=== PATIENT | female | born 2000 | race African-American/Black ===

== ENCOUNTER 2019-05-25 13:51 | Outpatient (CLI) | payer OTHER ==
--- NOTE | 2019-05-25 14:55 | ULT ---
OB ULTRASOUND: HISTORY: anatomy and cervical length. FINDINGS: A single live intrauterine gestation is seen with measurements corresponding to an estimated gestatio nal age of 28 weeks 2 days and DEMIAN at 08/15/2019. The estimated weight measures 1187 g or 2 pounds and 10 ounces, 29% by Hadlock criteria. measurements are as follows: BPD: 7.00 cm, 28 weeks 1 day HC: 25.90 cm, 28 weeks 2 days AC: 23.57 cm, 28 weeks 0 days FL: 5.41 cm, 28 weeks 5 days heart rate measures 153 bpm. JOHNATHAN measures 8.1 cm. Placenta is anteriorly located without eviden ce of placenta previa. The cervical length measures 4.6 cm. A 3-vessel cord, cord insertion, kidneys, bladder, stomach, 4 chambered heart, lateral ventricl es, cerebellum, spine, lips/nose, upper and lower extremities are visualized. No definite abnormalities are seen. IMPRESSION: Single live intrauterine of 28 weeks 2 days estimated gestational age and estimated date of delivery at 08/15/2019. Transcribed Date/Time: 05/25/2019 3:06 PM
== END 2019-05-25 13:52 | disposition home or self-care (01) ==
LOC: BICULT 13:51
PROVIDERS: ATTEND Family Medicine
DX: O09.93 Supervision of high risk pregnancy, unspecified, third trimester (principal); Z3A.28 28 weeks gestation of pregnancy
CPT/HCPCS: 76805

== ENCOUNTER 2019-08-10 05:38 | Inpatient (IN) | payer OTHER ==
[2019-08-10] MEDS ORDERED: Bicitra 30 ML UDCUP PO SCH (06:02)
[2019-08-10] MEDS ORDERED: CEFAZOLIN 3 GM in Premix Bag 1 BAG IVPB SCH (06:02)
[2019-08-10] MEDS ORDERED: hydrALAZINE 20 MG/ML VIAL SLOW IVP PRN ×2 (06:02→09:11)
[2019-08-10] MEDS ORDERED: Promethazine HCl 25 MG/ML VIAL IM PRN ×3 (06:02→09:11)
[2019-08-10] MEDS ORDERED: Ondansetron PF 4 MG/2 ML Vial IVP PRN ×3 (06:02→09:11)
[2019-08-10] MEDS ORDERED: CEFAZOLIN 3 GM in Sodium Chloride 0.9% 100 ML IVPB SCH (06:15)
[2019-08-10 06:17] VITALS: BMI 47.2
[2019-08-10 06:40] LABS: Hemoglobin 9.9 g/dL (12.0-16.0); Mean Corpuscular HGB CONC 27.8 g/dL (32.0-36.0); Mean Corpuscular Hemoglobin 18.3 pg (25.0-35.0); Mean Corpuscular Volume 65.8 fL (78.0-98.0); RBC Distribution Width 16.6 % (11.5-14.5); Red Blood Cell (RBC) Count 5.42 mill/uL (4.00-5.20)
[2019-08-10 06:56] LABS: Mean Platelet Volume 11.9 fL (7.4-10.4); Platelet Count 322 thou/uL (130-400); White Blood Cell (WBC) Count 9.2 thou/uL (4.8-10.8)
[2019-08-10 07:07] LABS: HBSAg Index 0.21 S/CO (0-0.99); Hep B Surf Ag Non-Reactive S/CO (NonReactive); Syphilis Antibody Nonreactive (Nonreactive); Syphilis Antibody Index 0.08 S/CO (<1.00 Non-Reactive)
[2019-08-10] MEDS: Lactated Ringer's 1,000 ML IV SCH ×2 (07:30→21:20)
[2019-08-10] MEDS ORDERED: diphenhydrAMINE 50 MG/ML VIAL IVP PRN (07:36)
[2019-08-10] MEDS ORDERED: Ondansetron HCl/PF 4 MG/2 ML Vial IVP PRN (07:36)
[2019-08-10] MEDS ORDERED: Promethazine HCl 25 MG SUPP PR PRN (07:36)
[2019-08-10] MEDS ORDERED: Ketorolac Tromethamine 30 MG/ML VIAL IVP PRN (07:36)
[2019-08-10] MEDS ORDERED: Naloxone HCl 0.4 mg/ml Vial IVP PRN ×2 (07:36)
[2019-08-10] MEDS ORDERED: Naloxone HCl 0.4 mg/ml Vial IV PRN (07:36)
[2019-08-10] MEDS ORDERED: HYDROmorphone 2 MG/ML VIAL SLOW IVP PRN (07:36)
[2019-08-10] MEDS ORDERED: Meperidine HCl/PF 25 MG/ML VIAL SLOW IVP PRN (07:36)
[2019-08-10] MEDS ORDERED: L&D-Morphine 4 MG/ML VIAL SLOW IVP PRN (07:36)
[2019-08-10] MEDS ORDERED: MORPHINE 5 MG/10 ML PF VIAL ONE (07:37)
[2019-08-10] MEDS ORDERED: Oxytocin 10 UNITS/ML VIAL ONE ×2 (07:37→08:10)
[2019-08-10] MEDS ORDERED: PHENYLEPHRINE-NS 100 MCG/ML 10 ML SYRINGE ONE (07:38)
[2019-08-10] MEDS ORDERED: Ondansetron PF 4 MG/2 ML Vial ONE (07:38)
[2019-08-10] MEDS ORDERED: EPHEDRINE 25 MG/5 ML SYRINGE ONE (07:38)
[2019-08-10] MEDS ORDERED: Communication Order-Pharmacy FS SCH (07:45)
[2019-08-10] MEDS ORDERED: Ketorolac Tromethamine 30 MG/ML VIAL IVP SCH (07:45)
[2019-08-10] MEDS ORDERED: Bisacodyl 10 MG SUPP PR PRN (09:11)
[2019-08-10] MEDS ORDERED: NS / Oxytocin 40 units/1000ml 1,000 ML IV SCH (09:11)
[2019-08-10] MEDS ORDERED: Adacel (T-DAP) 0.5 ML SYRINGE IM ONE (09:11)
[2019-08-10] MEDS ORDERED: HYDROcodone/Acetaminophen 5/325 mg Tablet PO PRN (09:11)
[2019-08-10] MEDS ORDERED: Lanolin Ointment 7 GM TUBE TOP PRN (09:11)
[2019-08-10] MEDS ORDERED: diphenhydrAMINE 25 MG CAP PO PRN (09:11)
[2019-08-10] MEDS ORDERED: Docusate Calcium (SURFAK) 240 MG CAP PO SCH (09:30)
[2019-08-10] MEDS ORDERED: Prenatal Vitamin 1 TAB PO SCH (09:30)
[2019-08-10] MEDS ORDERED: Ferrous Sulfate 325 MG TAB PO SCH (09:30)
[2019-08-10] MEDS: Ketorolac Tromethamine 30 MG/ML VIAL IVP SCH ×2 (15:19→21:21)
[2019-08-10] MEDS: Ferrous Sulfate 325 MG TAB PO SCH (17:26)
[2019-08-10] MEDS ORDERED: Meperidine HCl/PF 25 MG/ML VIAL IM PRN (19:45)
[2019-08-10] MEDS: Docusate Calcium (SURFAK) 240 MG CAP PO SCH (21:20)
[2019-08-11] MEDS: Ibuprofen 800 MG TAB PO SCH ×3 (05:09→21:39)
[2019-08-11] MEDS: Ketorolac Tromethamine 30 MG/ML VIAL IVP SCH (05:10)
[2019-08-11 05:53] LABS: Hemoglobin 8.2 g/dL (12.0-16.0); Mean Corpuscular HGB CONC 32.9 g/dL (32.0-36.0); Mean Corpuscular Hemoglobin 21.7 pg (25.0-35.0); Mean Corpuscular Volume 65.9 fL (78.0-98.0); Mean Platelet Volume 11.1 fL (7.4-10.4); Platelet Count 227 thou/uL (130-400); RBC Distribution Width 16.1 % (11.5-14.5); Red Blood Cell (RBC) Count 3.78 mill/uL (4.00-5.20); White Blood Cell (WBC) Count 9.2 thou/uL (4.8-10.8)
[2019-08-11] MEDS: Docusate Calcium (SURFAK) 240 MG CAP PO SCH ×2 (08:18→21:39)
[2019-08-11] MEDS: HYDROcodone/Acetaminophen 5/325 mg Tablet PO PRN ×4 (08:18→21:39)
[2019-08-11] MEDS: Ferrous Sulfate 325 MG TAB PO SCH ×2 (08:18→16:43)
[2019-08-11] MEDS: Prenatal Vitamin 1 TAB PO SCH (08:19)
--- NOTE | 2019-08-11 08:46 | DN ---
DATE OF PROCEDURE: 08/10/2019 SURGEON: James Miles MD CONGRESSIONAL AIDE: Onel Tellez, PGY-3 PROCEDURE: Primary low transverse section. PREOPERATIVE DIAGNOSES: 1. Term intrauterine . 2. History of shoulder dystocia on previous delivery. POSTOPERATIVE DIAGNOSES: 1. Term intrauterine . 2. History of shoulder dystocia on previous delivery. ANESTHESIA: Spinal. INDICATIONS: The patient is a 18-year-old G2, P1-0-0-1 at 39 and 3 weeks, who presents for scheduled primary due to last baby being in shoulder dystocia and difficult delivery and small pelvis. DESCRIPTION OF PROCEDURE: After risks, benefits, and alternatives were explained to the patient, she gave informed consent. Preoperative antibiotics included cefazolin 2 g IV. She was taken to the operating room and spinal anesthesia was initiated. She was placed in the supine position with a left tilt and prepped and draped in the usual sterile fashion. Pfannenstiel incision was made with a scalpel and carried down to the level of fascia, which was sharply nicked. Fascial cut was extended bilaterally with Mattson scissors. Inferior and superior edges of the fascial cut edges were elevated with Radha clamps and the underlying rectus muscles were sharply and bluntly dissected free. Recti were divided digitally and retracted manually. The peritoneum was entered bluntly and retracted manually. Bladder blade was placed. A low transverse score was made with a scalpel and the uterus was entered in the midline with the scalpel. Some light meconium fluid was seen. Hysterotomy was extended manually. Infant was noted to be vertex and easily delivered by fundal pressure. Mouth and nares were bulb suctioned. Cord clamped and cut and grossly normal female was handed to awaiting nurse. Cord blood was obtained. Placenta was manually extracted, found to be intact with three vessel cord and discarded. Uterus was externalized and the endometrium was curetted with a dry lap. The uterus was then closed with a running locking 0 Vicryl suture, followed by a few [id number] 0 Vicryl sutures. Following this, hemostasis was noted. Abdomen was irrigated with saline, suctioned free of clots. Uterus was internalized and hysterotomy was again noted to be hemostatic. The peritoneum was then closed with 3-0 Vicryl. The fascia was then closed with a running nonlocking 0 PDS suture. Subcu tissues were irrigated and there were no bleeders. Subcu layer was then brought together with three interrupted 3-0 Vicryl suture. The skin was approximated with rajesh and a wound VAC pressure dressing was placed. All counts were correct. The patient tolerated the procedure well and was taken to the recovery room in stable condition. QBL: 852. COMPLICATIONS: None. SPECIMEN: Cord blood sent to lab for blood type. FINDINGS: Grossly normal female with Apgars of 8 and 9. Grossly normal placenta with 3-vessel cord, discarded. DRAINS: Garcia to gravity, draining clear urine. Job ID: [id number]
[2019-08-11] MEDS: Simethicone Chewable 80 MG TAB PO PRN ×2 (12:00→16:43)
[2019-08-12] MEDS: Simethicone Chewable 80 MG TAB PO PRN ×2 (00:04→12:24)
[2019-08-12] MEDS: HYDROcodone/Acetaminophen 5/325 mg Tablet PO PRN ×5 (02:00→20:12)
[2019-08-12] MEDS: Ibuprofen 800 MG TAB PO SCH ×3 (06:13→21:36)
[2019-08-12] MEDS: Ferrous Sulfate 325 MG TAB PO SCH ×2 (08:19→16:47)
[2019-08-12] MEDS: Prenatal Vitamin 1 TAB PO SCH (08:20)
[2019-08-12] MEDS: Docusate Calcium (SURFAK) 240 MG CAP PO SCH ×2 (08:20→20:12)
[2019-08-12] MEDS ORDERED: Fluconazole 100 MG TAB PO SCH (17:00)
[2019-08-13] MEDS: Ibuprofen 800 MG TAB PO SCH ×2 (05:17→13:50)
[2019-08-13] MEDS: HYDROcodone/Acetaminophen 5/325 mg Tablet PO PRN ×2 (05:18→12:43)
[2019-08-13 08:57] VITALS: BP 118/64; TEMP 98.7
[2019-08-13] MEDS: Prenatal Vitamin 1 TAB PO SCH (09:50)
[2019-08-13] MEDS: Ferrous Sulfate 325 MG TAB PO SCH (09:50)
[2019-08-13] MEDS: Docusate Calcium (SURFAK) 240 MG CAP PO SCH (09:50)
== END 2019-08-13 16:30 | disposition home or self-care (01) | DRG 788 ==
LOC: L&D 05:38 → 3SW 11:34
PROVIDERS: ADMIT Family Medicine; ATTEND Family Medicine
PROC: 10D00Z1 Extraction of Products of Conception, Low, Open Approach (ICD-10-PCS; principal; 2019-08-10)
DX: O66.0 Obstructed labor due to shoulder dystocia (principal); Z3A.39 39 weeks gestation of pregnancy; Z37.0 Single live birth
CPT/HCPCS: 36415; 51702; 85027; 86780; 86850; 86900; 86901; 87340; J1170; J1885; J2274; J2405; J2590

== ENCOUNTER 2020-07-16 13:38 | Outpatient (CLI) | payer MEDICAID, OTHER | END 2020-07-16 13:39 | disposition home or self-care (01) | LOC: BICULT 13:38 | PROVIDERS: ATTEND Family Medicine | DX: O09.892 Supervision of other high risk pregnancies, second trimester (principal); Z3A.25 25 weeks gestation of pregnancy | CPT/HCPCS: 76805 ==

== ENCOUNTER 2020-08-05 22:02 | Emergency (ER) | payer OTHER ==
[2020-08-05 23:13] LABS: ALT (SGPT) 7 U/L (8-55); AST (SGOT) 14 U/L (5-34); Albumin 3.4 g/dL (3.5-5.0); Alkaline Phosphatase 86 U/L (40-110); Anion Gap 13 mmol/L (10-20); BUN (Urea Nitrogen) 6 mg/dL (7.0-18.7); Bilirubin, Total Less than 0.2 mg/dL (0.2-1.2); Calc. Creatinine Clearance 0 mL/min (70-130); Calcium 8.2 mg/dL (7.8-10.44); Carbon Dioxide 21 mmol/L (22-29); Chloride 107 mmol/L (98-107); Globulin 3.6 g/dL (2.4-3.5); Glucose 88 mg/dL (70-105); Potassium 3.5 mmol/L (3.5-5.1); Sodium 137 mmol/L (136-145)
[2020-08-05 23:19] LABS: Hemoglobin 9.6 g/dL (12.0-16.0); Mean Corpuscular HGB CONC 31.6 g/dL (32.0-36.0); Mean Corpuscular Hemoglobin 21.3 pg (27.0-31.0); Mean Corpuscular Volume 67.4 fL (78.0-98.0); Mean Platelet Volume 11.6 fL (7.4-10.4); Platelet Count 258 thou/uL (130-400); RBC Distribution Width 18.1 % (11.5-14.5); Red Blood Cell (RBC) Count 4.49 mill/uL (4.20-5.40); White Blood Cell (WBC) Count 6.8 thou/uL (4.8-10.8)
[2020-08-05 23:41] LABS: #Lymphocytes 1.8 thou/uL (1.20-3.40); #Monocytes 0.6 thou/uL (0.11-0.59); #Neutrophils 4.4 thou/uL (1.40-6.50); %Basophils 0.2 % (0.0-1.0); %Eosinophils 0.7 % (0.0-10.0); %Lymphocytes 25.5 % (21.0-51.0); %Neutrophils 64.6 % (42.0-75.0); Anisocytosis SLIGHT = 6-15 cells (100X) (0-5/hpf); MDiff Complete? YES
== END 2020-08-06 01:31 | disposition home or self-care (01) ==
LOC: ERS 22:02
DX: J02.9 Acute pharyngitis, unspecified (principal)
CPT/HCPCS: 36415; 80053; 84702; 85025; 93005

== ENCOUNTER 2024-12-21 10:43 | Inpatient (IN) | payer MEDICAID, OTHER ==
[2024-12-21] MEDS ORDERED: Ondansetron PF 4 MG/2 ML Vial ONE (11:11)
[2024-12-21 11:49] LABS: #Basophils 0.08 10x3/uL (0.0-0.2); #Eosinophils 0.21 10x3/uL (0.0-0.7); #Monocytes 0.62 10x3/uL (0.11-0.59); #Neutrophils 5.19 10x3/uL (1.40-6.50); %Basophils 1.0 % (0.0-1.0); %Eosinophils 2.6 % (0.0-10.0); %Lymphocytes 24.3 % (21.0-51.0); %Monocytes 7.7 % (0.0-10.0); %Neutrophils 64.0 % (42.0-75.0); Hematocrit 45.2 % (36.0-47.0); Hemoglobin 14.1 g/dL (12.0-16.0); Mean Corpuscular Hemoglobin 24.5 pg (27.0-31.0); Mean Corpuscular Volume 78.5 fL (78.0-98.0); Platelet Count 300 10x3/uL (130-400); Red Blood Cell (RBC) Count 5.76 mill/uL (4.20-5.40); White Blood Cell (WBC) Count 8.10 10x3/uL (4.8-10.8)
[2024-12-21 11:51] LABS: BHCG - Serum Negative (NEGATIVE); Pregs Control Background? CLEAR/WHITE (CLR/WHITE); Pregs Control Bar Appear? YES (CONTROL BAR)
[2024-12-21 12:32] LABS: ALT (SGPT) 11 U/L (Less than 34); AST (SGOT) 21 U/L (11-34); Albumin 3.9 g/dL (3.1-4.5); Alkaline Phosphatase 184 U/L (40-110); Anion Gap 25 mmol/L (10-20); BUN (Urea Nitrogen) 6 mg/dL (7.0-18.7); Bilirubin, Total 0.3 mg/dL (0.3-1.2); Calc. Creatinine Clearance 0 mL/min (70-130); Calcium 8.4 mg/dL (7.8-10.44); Carbon Dioxide Less than 8 mmol/L (22-29); Chloride 110 mmol/L (98-107); Globulin 4.2 g/dL (2.4-3.5); Glucose 529 mg/dL (70-105); Lipase 8 U/L (8-78); Potassium 4.4 mmol/L (3.5-5.1); Sodium 137 mmol/L (136-145)
[2024-12-21 13:14] LABS: Bacteria/HPF None Seen HPF (None Seen); CAUTI Indications for Culture Dysuria,urgency,freq; Glucose, Urine (Dipstick) Greater than 1000 mg/dL (Negative); Leukocyte Negative Leu/uL (Negative); Protein, Urine (Dipstick) 20 mg/dL (Neg-Trace); Specific Gravity, Urine 1.030 (1.002-1.036); WBC/HPF 0-3 HPF (0-3); Yeast-Budding 1+ HPF (None Seen); Yeast-Hyphae Rare HPF (None Seen)
[2024-12-21 13:15] LABS: Urine Culture Reflex No No
[2024-12-21 13:15] LABS: Base Excess -21.2 mEq/L (-2.0 to +3.0); Calcium, Ionized (venous) 1.10 mmol/L (1.16-1.32); Chloride (VBG) 112 mmol/L (98-106); Hematocrit-VBG 43 % (36.0-47.0); Hemoglobin (Hb) 14.7 g/dL (11.7-15.5); Potassium (VBG) 3.67 mmol/L (3.70-5.30); Sodium 142 mmol/L (133-146)
[2024-12-21 13:16] LABS: Actual Bicarbonate (HCO3v) 7.8 mEq/L (22-28)
[2024-12-21 13:40] LABS: Osmolality, Serum 318 mOsm/kg (275-295)
[2024-12-21] MEDS ORDERED: NS 0.9% w/ 20 MEQ KCL 1,000 ML ONE ×2 (13:42→16:05)
[2024-12-21] MEDS ORDERED: INSULIN REGULAR IN 0.9 % NACL 100 ML ONE (13:42)
[2024-12-21] MEDS ORDERED: Sodium Bicarb 50 MEQ/50 ML Abboject 8.4% SYRINGE ONE (14:55)
[2024-12-21] MEDS ORDERED: Senokot S 8.6-50 MG TAB PO PRN (15:59)
[2024-12-21] MEDS: NS 0.9% w/ 20 MEQ KCL 1,000 ML IV PRN (16:00)
[2024-12-21] MEDS ORDERED: Electrolyte Replacement Protocol 1 EACH FS SCH (16:00)
[2024-12-21] MEDS ORDERED: Dextrose 50% Abboject 50 ML SYRINGE SLOW IVP PRN (16:01)
[2024-12-21] MEDS ORDERED: NS 0.9% w/ 20 MEQ KCL 1,000 ML IV PRN (16:01)
[2024-12-21] MEDS ORDERED: INSULIN REGULAR IN 0.9 % NACL 100 ML IVPB SCH (16:15)
[2024-12-21 17:15] LABS: Anion Gap 18 mmol/L (10-20); BUN (Urea Nitrogen) 4 mg/dL (7.0-18.7); Calc. Creatinine Clearance 0 mL/min (70-130); Calcium 7.8 mg/dL (7.8-10.44); Carbon Dioxide 11 mmol/L (22-29); Chloride 118 mmol/L (98-107); Glucose 224 mg/dL (70-105); Potassium 3.5 mmol/L (3.5-5.1); Sodium 143 mmol/L (136-145)
[2024-12-21] MEDS: Ferrous Sulfate 325 MG TAB PO SCH (20:05)
[2024-12-21] MEDS: Ondansetron PF 4 MG/2 ML Vial IVP PRN (20:10)
[2024-12-21 20:23] VITALS: BMI 51.2
[2024-12-21] MEDS: D5 1/2 NS w/20 mEq KCL 1,000 ML IV PRN (22:41)
[2024-12-21] MEDS: Potassium Chloride 20 MEQ in Premix 1 BAG IVPB SCH (22:41)
[2024-12-22 00:04] LABS: Anion Gap 16 mmol/L (10-20); BUN (Urea Nitrogen) Less than 4 mg/dL (7.0-18.7); Calc. Creatinine Clearance 219 mL/min (70-130); Calcium 7.7 mg/dL (7.8-10.44); Carbon Dioxide 14 mmol/L (22-29); Chloride 114 mmol/L (98-107); Glucose 264 mg/dL (70-105); Potassium 3.4 mmol/L (3.5-5.1); Sodium 141 mmol/L (136-145)
[2024-12-22] MEDS: Acetaminophen 325 MG TAB PO PRN (02:42)
[2024-12-22 04:27] LABS: #Basophils 0.08 10x3/uL (0.0-0.2); #Eosinophils 0.34 10x3/uL (0.0-0.7); #Monocytes 0.63 10x3/uL (0.11-0.59); #Neutrophils 3.80 10x3/uL (1.40-6.50); %Basophils 1.1 % (0.0-1.0); %Eosinophils 4.7 % (0.0-10.0); %Lymphocytes 32.9 % (21.0-51.0); %Monocytes 8.7 % (0.0-10.0); %Neutrophils 52.3 % (42.0-75.0); Hematocrit 36.6 % (36.0-47.0); Hemoglobin 11.7 g/dL (12.0-16.0); Mean Corpuscular Hemoglobin 25.0 pg (27.0-31.0); Mean Corpuscular Volume 78.2 fL (78.0-98.0); Platelet Count 241 10x3/uL (130-400); Red Blood Cell (RBC) Count 4.68 mill/uL (4.20-5.40); White Blood Cell (WBC) Count 7.26 10x3/uL (4.8-10.8)
[2024-12-22 05:18] LABS: ALT (SGPT) Less than 7 U/L (Less than 34); AST (SGOT) 13 U/L (11-34); Albumin 2.9 g/dL (3.1-4.5); Anion Gap 11 mmol/L (10-20); BUN (Urea Nitrogen) Less than 4 mg/dL (7.0-18.7); Bilirubin, Total 0.3 mg/dL (0.3-1.2); Calc. Creatinine Clearance 243 mL/min (70-130); Calcium 7.7 mg/dL (7.8-10.44); Carbon Dioxide 14 mmol/L (22-29); Cardiac Risk 6.4 (Less than 4.5); Chloride 113 mmol/L (98-107); Cholesterol 197 mg/dl (< 200 Desired); Globulin 3.2 g/dL (2.4-3.5); Glucose 225 mg/dL (70-105); HDL Cholesterol 31 mg/dL (>60 Neg Risk); LDL Cholesterol, Calculated 139 mg/dL; Magnesium 1.5 mg/dL (1.6-2.6); Potassium 3.5 mmol/L (3.5-5.1); Sodium 134 mmol/L (136-145); Triglycerides 134 mg/dL (Less than 150)
[2024-12-22 05:44] LABS: Alkaline Phosphatase 121 U/L (40-110)
[2024-12-22] MEDS: Magnesium 2 GM/50 ML(in water) 2 GM in Premix 1 BAG IVPB SCH (07:55)
[2024-12-22] MEDS: Potassium Phosphate 30 MMOL in Sodium Chloride 0.9% 250 ML 250 ML IVPB SCH (07:55)
[2024-12-22] MEDS: Enoxaparin 40 MG (0.4 mL) SYRINGE SC SCH (07:55)
[2024-12-22] MEDS: Calcium Carbonate 500 MG ChewTAB PO PRN (07:55)
[2024-12-22 08:32] LABS: Anion Gap 12 mmol/L (10-20); BUN (Urea Nitrogen) Less than 4 mg/dL (7.0-18.7); Calc. Creatinine Clearance 236 mL/min (70-130); Calcium 7.9 mg/dL (7.8-10.44); Carbon Dioxide 12 mmol/L (22-29); Chloride 113 mmol/L (98-107); Glucose 151 mg/dL (70-105); Potassium 3.5 mmol/L (3.5-5.1); Sodium 133 mmol/L (136-145)
[2024-12-22] MEDS ORDERED: Sodium Bicarbonate Tab 325 MG TAB PO SCH (12:00)
[2024-12-22] MEDS ORDERED: Dextrose 50% Abboject 50 ML SYRINGE SLOW IVP PRN (13:10)
[2024-12-22] MEDS ORDERED: Glucagon 1 MG/ML KIT IM PRN (13:10)
[2024-12-22] MEDS: Insulin Glargine 30 UNITS/0.3 ML VIAL SC SCH ×2 (14:25→20:44)
[2024-12-22] MEDS: Potassium Bicarbonate/Cit Ac 20 MEQ TAB PO SCH ×2 (14:28→23:38)
[2024-12-22 15:05] VITALS: BMI 51.2
[2024-12-22 16:14] LABS: Anion Gap 16 mmol/L (10-20); BUN (Urea Nitrogen) Less than 4 mg/dL (7.0-18.7); Calc. Creatinine Clearance 195 mL/min (70-130); Calcium 8.3 mg/dL (7.8-10.44); Carbon Dioxide 14 mmol/L (22-29); Chloride 105 mmol/L (98-107); Glucose 354 mg/dL (70-105); Potassium 3.8 mmol/L (3.5-5.1); Sodium 131 mmol/L (136-145)
[2024-12-22] MEDS: Electrolyte Replacement Protocol 1 EACH IVPB ONE (16:16)
[2024-12-22 20:26] LABS: Anion Gap 14 mmol/L (10-20); BUN (Urea Nitrogen) 4 mg/dL (7.0-18.7); Calc. Creatinine Clearance 198 mL/min (70-130); Calcium 8.1 mg/dL (7.8-10.44); Carbon Dioxide 14 mmol/L (22-29); Chloride 105 mmol/L (98-107); Glucose 487 mg/dL (70-105); Potassium 3.4 mmol/L (3.5-5.1); Sodium 130 mmol/L (136-145)
[2024-12-22] MEDS: Famotidine 20 MG TAB PO SCH (20:44)
[2024-12-23 06:38] LABS: Anion Gap 17 mmol/L (10-20); BUN (Urea Nitrogen) Less than 4 mg/dL (7.0-18.7); Calc. Creatinine Clearance 264 mL/min (70-130); Calcium 8.3 mg/dL (7.8-10.44); Carbon Dioxide 17 mmol/L (22-29); Chloride 106 mmol/L (98-107); Glucose 299 mg/dL (70-105); Magnesium 1.8 mg/dL (1.6-2.6); Potassium 3.1 mmol/L (3.5-5.1); Sodium 137 mmol/L (136-145)
[2024-12-23] MEDS ORDERED: Potassium Bicarbonate/Cit Ac 20 MEQ TAB PO SCH (07:45)
[2024-12-23] MEDS: Insulin Glargine 30 UNITS/0.3 ML VIAL SC SCH ×2 (08:18→20:41)
[2024-12-23] MEDS ORDERED: Insulin Glargine 30 UNITS/0.3 ML VIAL SC SCH (09:00)
[2024-12-23] MEDS: Magnesium 2 GM/50 ML(in water) 2 GM in Premix 1 BAG IVPB SCH (10:03)
[2024-12-23] MEDS ORDERED: Insulin Regular 300 UNITS/3 ML VIAL SC PRN (12:58)
[2024-12-23] MEDS: Sodium Bicarbonate Tab 325 MG TAB PO SCH (15:17)
[2024-12-23] MEDS: Senokot S 8.6-50 MG TAB PO SCH (20:52)
[2024-12-24] MEDS: ALPRAZolam 0.25 MG TAB PO SCH (00:38)
[2024-12-24 04:57] LABS: #Basophils Less than 0.03 10x3/uL (0.0-0.2); #Eosinophils 0.22 10x3/uL (0.0-0.7); #Monocytes 0.42 10x3/uL (0.11-0.59); #Neutrophils 1.73 10x3/uL (1.40-6.50); %Basophils 0.4 % (0.0-1.0); %Eosinophils 4.0 % (0.0-10.0); %Lymphocytes 56.5 % (21.0-51.0); %Monocytes 7.6 % (0.0-10.0); %Neutrophils 31.3 % (42.0-75.0); Hematocrit 36.0 % (36.0-47.0); Hemoglobin 11.8 g/dL (12.0-16.0); Mean Corpuscular Hemoglobin 24.9 pg (27.0-31.0); Mean Corpuscular Volume 75.9 fL (78.0-98.0); Platelet Count 224 10x3/uL (130-400); Red Blood Cell (RBC) Count 4.74 mill/uL (4.20-5.40); White Blood Cell (WBC) Count 5.52 10x3/uL (4.8-10.8)
[2024-12-24 05:10] LABS: Anion Gap 11 mmol/L (10-20); BUN (Urea Nitrogen) Less than 4 mg/dL (7.0-18.7); Calc. Creatinine Clearance 292 mL/min (70-130); Calcium 7.8 mg/dL (7.8-10.44); Carbon Dioxide 27 mmol/L (22-29); Chloride 107 mmol/L (98-107); Glucose 77 mg/dL (70-105); Magnesium 2.0 mg/dL (1.6-2.6); Potassium 2.8 mmol/L (3.5-5.1); Sodium 142 mmol/L (136-145)
[2024-12-24] MEDS: Magnesium 2 GM/50 ML(in water) 2 GM in Premix 1 BAG IVPB SCH (08:35)
[2024-12-24] MEDS ORDERED: Insulin Glargine 30 UNITS/0.3 ML VIAL SC SCH (10:57)
[2024-12-24] MEDS: metFORMIN 500 MG TAB PO SCH (16:52)
[2024-12-24] MEDS: Insulin Glargine 30 UNITS/0.3 ML VIAL SC SCH (21:11)
[2024-12-24] MEDS: Ketorolac Tromethamine 30 MG (1 mL) VIAL IVP PRN (22:50)
[2024-12-25 05:40] LABS: #Basophils 0.04 10x3/uL (0.0-0.2); #Eosinophils 0.22 10x3/uL (0.0-0.7); #Monocytes 0.55 10x3/uL (0.11-0.59); #Neutrophils 1.77 10x3/uL (1.40-6.50); %Basophils 0.7 % (0.0-1.0); %Eosinophils 3.7 % (0.0-10.0); %Lymphocytes 55.8 % (21.0-51.0); %Monocytes 9.4 % (0.0-10.0); %Neutrophils 30.1 % (42.0-75.0); Hematocrit 41.6 % (36.0-47.0); Hemoglobin 13.4 g/dL (12.0-16.0); Mean Corpuscular Hemoglobin 25.3 pg (27.0-31.0); Mean Corpuscular Volume 78.6 fL (78.0-98.0); Platelet Count 291 10x3/uL (130-400); Red Blood Cell (RBC) Count 5.29 mill/uL (4.20-5.40); White Blood Cell (WBC) Count 5.88 10x3/uL (4.8-10.8)
[2024-12-25 05:56] LABS: Anion Gap 14 mmol/L (10-20); BUN (Urea Nitrogen) Less than 4 mg/dL (7.0-18.7); Calc. Creatinine Clearance 273 mL/min (70-130); Calcium 8.5 mg/dL (7.8-10.44); Carbon Dioxide 26 mmol/L (22-29); Chloride 109 mmol/L (98-107); Glucose 104 mg/dL (70-105); Magnesium 2.0 mg/dL (1.6-2.6); Potassium 3.5 mmol/L (3.5-5.1); Sodium 145 mmol/L (136-145)
[2024-12-25] MEDS: Magnesium 2 GM/50 ML(in water) 2 GM in Premix 1 BAG IVPB SCH (08:36)
[2024-12-25] MEDS ORDERED: Insulin Glargine 30 UNITS/0.3 ML VIAL SC SCH (09:00)
[2024-12-25 15:54] VITALS: BP 137/95; TEMP 98.2
== END 2024-12-25 15:40 | disposition home or self-care (01) | DRG 638 ==
LOC: ERS 10:43 → SUATTDRO 10:43 → ERHOLD 14:50 → IMCU/EMU 18:38 → MSONC 12-23 14:36
PROVIDERS: ADMIT Internal Medicine; ATTEND Hospitalist
DX: E11.10 Type 2 diabetes mellitus with ketoacidosis without coma (principal); E87.1 Hypo-osmolality and hyponatremia; N17.9 Acute kidney failure, unspecified; Z68.43 Body mass index [BMI] 50.0-59.9, adult; E83.42 Hypomagnesemia; E87.6 Hypokalemia; E83.39 Other disorders of phosphorus metabolism; E66.9 Obesity, unspecified; D63.8 Anemia in other chronic diseases classified elsewhere; E11.65 Type 2 diabetes mellitus with hyperglycemia; R30.0 Dysuria; R81 Glycosuria; F41.9 Anxiety disorder, unspecified; Z71.3 Dietary counseling and surveillance; Z79.4 Long term (current) use of insulin; Z98.891 History of uterine scar from previous surgery
CPT/HCPCS: 36415; 36416; 80048; 80053; 80061; 81001; 82010; 82805; 83036; 83605; 83690; 83735; 83930; 84100; 84443; 84703; 85025; 96361; 96365; 96366; 96375; J1650; J1815; J1885; J2405; J3475; J3480; J7030; J7050; J7120; Q0162